=== PATIENT | female | born 1955 | race Two or more races ===

== ENCOUNTER → 2025-03-13 | Outpatient (CLI) | payer MEDICARE, MEDICAID, SELFPAY ==
--- NOTE | 2025-03-13 09:00 | XR_ITS ---
Examination: Bone densitometry Date and time of exam:March 13, 2025 0919 hours INDICATIONS: Menopause age 51 vitamin D 2 years, personal history osteoporosis Technique: Lumbar spine and hip total bone mineralization values of an calculated. Peak reference and age match control results have been displayed. Findings: Lumbar spine total bone mineralization is0.739 gm/cm2. This is 2.8 standard deviations below peak reference. This is 0.9 standard deviations below age-matched controls. Hip total bone mineralization is 0.756 gm/cm2 This is 1.5 standard deviations below peak reference. This is 0.1 standard deviations below age-matched controls Impression: There is osteoporosis based on lumbar spine measurements. There is osteoporosis based on hip measurements Lumbar mineralization is increase 7.9% compared with December 15, 2021 Hip mineralization is increased 1.3% compared with December 15, 2021
== END | disposition home or self-care (01) ==
LOC: CDIM 08:48
PROVIDERS: Referring Provider Obstetrics & Gynecology; Visit Provider Obstetrics & Gynecology
DX: M81.0 Age-related osteoporosis without current pathological fracture (principal)
CPT/HCPCS: 77080